=== PATIENT | female | born 1995 | race American Indian/Alaskan Native ===

== ENCOUNTER 2019-03-28 07:49 | Emergency (ER) | payer SELFPAY ==
[2019-03-28 08:21] VITALS: BP 113/66
--- NOTE | 2019-03-28 09:07 | Emergency Department Report ---
Chief Complaint: Extremity Injury, Upper Stated Complaint: LFT WRIST FACE/FACE SWOLLEN Time Seen by Provider: 03/28/19 09:04 - HPI History of Present Illness: Pearl is a healthy 23-year-old female who was injured on the job on Thursday. It was a new job. Consequently she continued to work. She did not file a complaint. She was knocked over by a heavy machine. She has left wrist pain and facial swelling. On my brief exam patient has no swelling of the face. No deformity of the wrist. No indication of fracture or severe traumatic injury. I perform a medical screening exam. reommended [id number] treatment such as Alfonzo wrap and ibuprofen at nearby drugstore. Medical screening exam performed and completed. - Exam Vital Signs: Vital Signs 03/28/19 08:18 Temperature 98.6 F Pulse Rate 73 Respiratory 18 Rate Blood Pressure 113/66 O2 Sat by Pulse 100 Oximetry MSE screening note: Focused history and physical exam performed. Due to findings the following was ordered: ED Disposition for [facility] Clinical Impression: Left wrist pain, Facial injury Disposition: Z-07 MED SCREENING EXAM-LEFT Condition: Stable Referrals: MAYUR MYERS MD [Primary Care Provider] - 3-5 Days Forms: Work/School Release Form(ED)
== END 2019-03-28 09:15 | disposition left against medical advice (07) ==
LOC: ED 07:49
DX: S09.93XA Unspecified injury of face, initial encounter (principal); M25.532 Pain in left wrist; X58.XXXA Exposure to other specified factors, initial encounter; Y93.89 Activity, other specified; Y92.89 Other specified places as the place of occurrence of the external cause; Y99.8 Other external cause status